=== PATIENT | male | born 1975 | race African-American/Black ===

== ENCOUNTER 2017-09-05 00:49 | Emergency (ER) | payer MEDICAID, OTHER ==
[~2017-09-05] VITALS: Ht 180.3 cm; Wt 68.0 kg
[~2017-09-05 00:49] MED LIST: APIX5TAB PO; FOLI1TAB16 PO
[2017-09-05 02:47] LABS: BASOPHILS # (AUTO) 0.1 K/uL (0.0-8.0); BASOPHILS % (AUTO) 0.4 % (0.0-2.0); EOSINOPHILS # (AUTO) 0.3 K/uL (0.0-0.7); EOSINOPHILS % (AUTO) 2.1 % (0.0-7.0); HEMOGLOBIN 7.2 G/DL (14.0-18.0); LYMPHOCYTES # (AUTO) 2.6 K/UL (0.8-4.8); LYMPHOCYTES % (AUTO) 19.4 % (20.5-51.5); MEAN CORPUSCULAR HEMOGLOBIN 28.7 UUG (27.0-31.0); MEAN CORPUSCULAR HGB CONC 34 g/dL (32.0-37.0); MEAN CORPUSCULAR VOLUME 85.1 FL (82.0-92.0); MONOCYTES % (AUTO) 14.8 % (0.0-11.0); NEUTROPHILS # (AUTO) 8.5 K/UL (1.8-8.9); NEUTROPHILS % (AUTO) 63.3 % (38.5-71.5); PLATELET COUNT (AUTO) 440 K/UL (150-450); WHITE BLOOD COUNT (AUTO) 13.5 K/UL (4.0-11.2)
[2017-09-05 02:52] LABS: *BILIRUBIN,URIN NEGATIVE (NEGATIVE); *BLOOD, URINE 2+ (NEGATIVE); *COLOR,URINE AMBER (YELLOW); *KETONES,URINE NEGATIVE (NEGATIVE); *PROTEIN,URINE 3+ (NEGATIVE); *UROBILINOGEN,URINE 0.2 E.U./dl (NORMAL); LEUKOCYTE ESTERASE ,URINE NEGATIVE (NEGATIVE); NITRITE, URINE NEGATIVE (NEGATIVE); UGLUCOSE NEGATIVE (NEGATIVE)
[2017-09-05 02:59] LABS: RED BLOOD CELL COUNT(AUTO) 2.49 MIL/UL (4.7-6.1)
[2017-09-05 03:00] LABS: HEMATOCRIT 21.2 % (40-50)
[2017-09-05 03:04] LABS: *CLARITY,URINE HAZY (CLEAR); BILIRUBIN,TOTAL 3.6 mg/dL (0.2-1.0); POTASSIUM 4.3 mmol/L (3.5-5.1); TOTAL PROTEIN, SERUM 7.6 g/dL (6.4-8.2)
[2017-09-05 03:05] LABS: BACTERIA,URINE NONE SEEN /HPF (NONE SEEN); SQUAMOUS EPITHELIAL CELL,UR FEW /HPF (NONE SEEN)
[2017-09-05 03:32] LABS: EOSINOPHILS % (MANUAL) 1 % (0-8); LYMPHOCYTES % (MANUAL) 23 % (20-40); MONOCYTES % (MANUAL) 7 % (2-10); NEUTROPHILS % (MANUAL) 69 % (42-75)
--- NOTE | 2017-09-05 03:39 | NUR ---
Call placed to [employer] [ ], message left on [employer] notifying of patient's visit. This was done as recommended by CODY caraballo, and ordered by AKBAR.
[2017-09-05 04:09] VITALS: BP 122/74
--- NOTE | 2017-09-05 04:09 | NUR ---
Patient discharged to home in stable conditon. Written and verbal after care instructions given. Patient verbalizes understanding of instructions.
== END 2017-09-05 04:57 | disposition home or self-care (01) ==
LOC: ER 00:51
DX: D57.00 Hb-SS disease with crisis, unspecified (principal); Z86.718 Personal history of other venous thrombosis and embolism
CPT/HCPCS: 36415; 71010; 83605; 83690; 85025; 87040; 87086; 87400; A4663; J1170; J2405

== ENCOUNTER 2017-10-20 19:48 | Inpatient (IN) | payer OTHER ==
[~2017-10-20] VITALS: Ht 167.6 cm; Wt 65.3 kg
[2017-10-20 21:03] LABS: BASOPHILS # (AUTO) 0.4 K/uL (0.0-8.0); BASOPHILS % (AUTO) 3.1 % (0.0-2.0); EOSINOPHILS # (AUTO) 0.5 K/uL (0.0-0.7); EOSINOPHILS % (AUTO) 3.7 % (0.0-7.0); LYMPHOCYTES # (AUTO) 2.1 K/UL (0.8-4.8); MEAN CORPUSCULAR HEMOGLOBIN 28.8 UUG (27.0-31.0); MEAN CORPUSCULAR HGB CONC 34 g/dL (32.0-37.0); MEAN CORPUSCULAR VOLUME 84.8 FL (82.0-92.0); MONOCYTES # (AUTO) 1.7 K/UL (0.1-1.30); MONOCYTES % (AUTO) 12.2 % (0.0-11.0); NEUTROPHILS # (AUTO) 9.3 K/UL (1.8-8.9); PLATELET COUNT (AUTO) 664 K/UL (150-450)
[2017-10-20 21:14] LABS: POTASSIUM 4.1 mmol/L (3.5-5.1)
[2017-10-20 21:17] LABS: HEMOGLOBIN 6.8 G/DL (14.0-18.0); RED BLOOD CELL COUNT(AUTO) 2.36 MIL/UL (4.7-6.1)
[2017-10-20 21:30] LABS: BILIRUBIN,DIRECT 0.7 mg/dL (0.0-0.2); BILIRUBIN,TOTAL 4.9 mg/dL (0.2-1.0); TOTAL PROTEIN, SERUM 6.3 g/dL (6.4-8.2)
[2017-10-20 21:37] LABS: BAND % (MANUAL) 3 % (0-10); EOSINOPHILS % (MANUAL) 5 % (0-8); LYMPHOCYTES % (MANUAL) 18 % (20-40); MONOCYTES % (MANUAL) 10 % (2-10); NEUTROPHILS % (MANUAL) 64 % (42-75)
[2017-10-20] MEDS ORDERED: HYDROMORPHONE HCL 2 MG TABLET PO ONE (22:15)
[2017-10-20] MEDS ORDERED: HYDROMORPHONE HCL 2 MG TABLET ONE (22:31)
[2017-10-21] MEDS ORDERED: IV NS 1000 ML 1,000 ML IV PRN (01:16)
[2017-10-21] MEDS ORDERED: diphenhydrAMINE 50 MG/1 ML VIAL IV PRN ×2 (01:30→20:15)
[2017-10-21] MEDS ORDERED: Z GUARD REMEDY PASTE 57 GM TUBE TOP PRN (01:30)
[2017-10-21] MEDS ORDERED: MAGNESIUM HYDROXIDE 30 ML LIQUID UDC PO PRN (01:30)
[2017-10-21] MEDS ORDERED: HYDROMORPHONE HCL 2 MG TABLET PO PRN (01:30)
[2017-10-21] MEDS ORDERED: ACETAMINOPHEN 325 MG TABLET PO PRN (01:30)
[2017-10-21] MEDS ORDERED: ONDANSETRON 4 MG/2 ML VIAL IV PRN (01:30)
[2017-10-21] MEDS ORDERED: HYDROCODONE/APAP 10-325 MG TABLET PO PRN (01:30)
[2017-10-21] MEDS ORDERED: KETOROLAC TROMETHAMINE 30 MG INJ IM PRN (01:30)
[2017-10-21 02:28] VITALS: BP 140/75
[2017-10-21 04:00] VITALS: BP 124/66
[2017-10-21] MEDS: FOLIC ACID 1 MG TABLET PO SCH (09:02)
[2017-10-21 11:25] VITALS: BP 144/80
[2017-10-21 15:56] VITALS: BP 132/72
[2017-10-21 20:00] VITALS: BP 130/69
[2017-10-21] MEDS: HYDROMORPHONE 2 MG/1 ML DISP.SYRIN IV PRN ×2 (20:48→23:52)
[2017-10-22 05:00] VITALS: BP 133/70
[2017-10-22] MEDS: HYDROMORPHONE 2 MG/1 ML DISP.SYRIN IV PRN ×4 (05:38→18:10)
[2017-10-22] MEDS: ONDANSETRON 4 MG/2 ML VIAL IV PRN ×4 (05:38→18:11)
[2017-10-22 06:27] LABS: BASOPHILS # (AUTO) 0.5 K/uL (0.0-8.0); BASOPHILS % (AUTO) 3.2 % (0.0-2.0); EOSINOPHILS % (AUTO) 5.9 % (0.0-7.0); LYMPHOCYTES # (AUTO) 3.7 K/UL (0.8-4.8); LYMPHOCYTES % (AUTO) 22.9 % (20.5-51.5); MEAN CORPUSCULAR HEMOGLOBIN 28.4 UUG (27.0-31.0); MEAN CORPUSCULAR HGB CONC 33 g/dL (32.0-37.0); MEAN CORPUSCULAR VOLUME 85.3 FL (82.0-92.0); MONOCYTES # (AUTO) 3.1 K/UL (0.1-1.30); MONOCYTES % (AUTO) 18.8 % (0.0-11.0); NEUTROPHILS % (AUTO) 49.2 % (38.5-71.5); PLATELET COUNT (AUTO) 685 K/UL (150-450); RED BLOOD CELL COUNT(AUTO) 2.51 MIL/UL (4.7-6.1); WHITE BLOOD COUNT (AUTO) 16.3 K/UL (4.0-11.2)
[2017-10-22 06:45] LABS: HEMATOCRIT 21.4 % (40-50)
[2017-10-22 06:46] LABS: HEMOGLOBIN 7.2 G/DL (14.0-18.0)
[2017-10-22 07:01] LABS: CREATININE 0.8 mg/dL (0.6-1.3); MAGNESIUM 1.8 mg/dL (1.8-2.4); PHOSPHOROUS 3.9 mg/dL (2.5-4.9); POTASSIUM 4.1 mmol/L (3.5-5.1)
[2017-10-22 08:01] LABS: BAND % (MANUAL) 1 % (0-10); BASOPHILS % (MANUAL) 1 % (0-2); EOSINOPHILS % (MANUAL) 5 % (0-8); LYMPHOCYTES % (MANUAL) 23 % (20-40); MONOCYTES % (MANUAL) 17 % (2-10); NEUTROPHILS % (MANUAL) 53 % (42-75)
[2017-10-22] MEDS: FOLIC ACID 1 MG TABLET PO SCH (08:43)
[2017-10-22 12:07] VITALS: BP 133/81
[2017-10-22 16:05] VITALS: BP 131/71
[2017-10-22 20:00] VITALS: BP 137/81
[2017-10-23] MEDS: ONDANSETRON 4 MG/2 ML VIAL IV PRN ×2 (00:22→06:51)
[2017-10-23] MEDS: HYDROMORPHONE 2 MG/1 ML DISP.SYRIN IV PRN ×2 (00:23→06:51)
[2017-10-23 04:50] VITALS: BP 132/81
[2017-10-23] MEDS ORDERED: DOXYCYCLINE HYCLATE 100 MG TABLET PO SCH (09:00)
[2017-10-23] MEDS: FOLIC ACID 1 MG TABLET PO SCH (09:04)
[2017-10-23] MEDS ORDERED: DOXY100T2 PO (11:01)
[2017-10-23] MEDS ORDERED: HYDR4TAB4 PO (11:01)
[2017-10-23] MEDS ORDERED: ONDANSETRON HCL 4 MG TABLET PO PRN (11:15)
[2017-10-23 11:23] VITALS: BP 143/74
== END 2017-10-23 14:30 | disposition home or self-care (01) | DRG 662 ==
LOC: ER 19:49 → TELE 10-21 01:50 → MED 10-21 23:25
PROVIDERS: ADMIT Internal Medicine; ATTEND Internal Medicine
DX: D57.00 Hb-SS disease with crisis, unspecified (principal); I80.8 Phlebitis and thrombophlebitis of other sites; Z79.01 Long term (current) use of anticoagulants; E83.119 Hemochromatosis, unspecified; G89.29 Other chronic pain; K29.70 Gastritis, unspecified, without bleeding; Z90.81 Acquired absence of spleen; D63.8 Anemia in other chronic diseases classified elsewhere; D47.3 Essential (hemorrhagic) thrombocythemia; Z86.718 Personal history of other venous thrombosis and embolism; E80.6 Other disorders of bilirubin metabolism; Z90.49 Acquired absence of other specified parts of digestive tract
CPT/HCPCS: 36415; 70030-TC; 71010; 83735; 84100; 85025; 86850; 86870; 86900; 86901; 86920; 93005; A4663; J1170; J1885; J2405; J7030

== ENCOUNTER 2020-04-09 02:42 | Emergency (ER) | payer MEDICAID, OTHER ==
[~2020-04-09] VITALS: Ht 180.3 cm; Wt 76.7 kg
[~2020-04-09 02:42] MED LIST changes: +DOXY100T2 PO; +HYDR4TAB4 PO
--- NOTE | 2020-04-09 02:58 | NUR ---
Dr. Arias at bedside for MSE.
[2020-04-09] MEDS ORDERED: IV NS 1000 ML 1,000 ML IV ONE (03:30)
[2020-04-09] MEDS ORDERED: KETAMINE HCL 500 MG/10 ML INJ IV ONE (03:30)
[2020-04-09] MEDS ORDERED: LORAZEPAM 2 MG/1 ML VIAL IV ONE (03:30)
[2020-04-09 05:30] LABS: BASOPHILS # (AUTO) 0.1 K/uL (0.0-8.0); BASOPHILS % (AUTO) 0.6 % (0.0-2.0); EOSINOPHILS # (AUTO) 0.4 K/uL (0.0-0.7); MONOCYTES # (AUTO) 1.1 K/uL (2.0-10.0)
[2020-04-09 05:32] LABS: EOSINOPHILS % (AUTO) 3.7 % (0.0-7.0); HEMATOCRIT 22.1 % (36.7-47.1); LYMPHOCYTES # (AUTO) 1.9 K/uL (20.0-40.0); LYMPHOCYTES % (AUTO) 17.6 % (20.5-51.5); MEAN CORPUSCULAR HEMOGLOBIN 28.5 uug (23.8-33.4); MEAN CORPUSCULAR HGB CONC 33 g/dL (32.5-36.3); MEAN CORPUSCULAR VOLUME 85.3 fL (73.0-96.2); MONOCYTES % (AUTO) 10.3 % (0.0-11.0); NEUTROPHILS # (AUTO) 7.5 K/uL (1.8-8.9); NEUTROPHILS % (AUTO) 67.8 % (38.5-71.5); PLATELET COUNT (AUTO) 272 K/uL (152-348); RED BLOOD CELL COUNT(AUTO) 2.59 MIL/uL (4.06-5.63); WHITE BLOOD COUNT (AUTO) 11.1 K/uL (3.6-10.2)
[2020-04-09 05:53] LABS: ALANINE AMINOTRANSFERASE 58 U/L (16-63); ALKALINE PHOSPHATASE 118 U/L (50-136); ASPARTATE AMINOTRANSFERASE 91 U/L (15-37); BILIRUBIN,DIRECT 0.8 mg/dL (0.0-0.2); BILIRUBIN,TOTAL 7.8 mg/dL (0.2-1.0); CARBON DIOXIDE 28 mmol/L (21-32); CHLORIDE 106 mmol/L (98-107); CREATININE 1.3 mg/dL (0.6-1.3); GLUCOSE 110 mg/dL (74-106); POTASSIUM 4.6 mmol/L (3.5-5.1); TOTAL PROTEIN, SERUM 6.8 g/dL (6.4-8.2); UREA NITROGEN, BLOOD 22 mg/dL (7-18)
[2020-04-09 05:59] LABS: HEMOGLOBIN 7.4 g/dL (12.5-16.3)
[2020-04-09 06:02] LABS: ETHANOL < 3 MG/DL (0-0)
--- NOTE | 2020-04-09 06:45 | NUR ---
Patient discharged to home in stable condition. Written and verbal after care instructions given. Patient verbalizes understanding of instructions. Stressed follow up or return to ER for worsening s/s. Pt ambulated out of ER with steady gait, no acute signs of distress, VSS, all belongings taken.
[2020-04-09 06:46] VITALS: BP 145/80
== END 2020-04-09 06:46 | disposition home or self-care (01) ==
LOC: ER 02:45
DX: G89.29 Other chronic pain (principal); Z86.718 Personal history of other venous thrombosis and embolism; Z79.01 Long term (current) use of anticoagulants; Z90.49 Acquired absence of other specified parts of digestive tract; Z90.81 Acquired absence of spleen; R00.0 Tachycardia, unspecified
CPT/HCPCS: 36415; 70030-TC; 71045; 83605; 85025; 93005; A4663; G0480; J7030